=== PATIENT | female | born 1995 | race Caucasian/White ===

== ENCOUNTER → 2017-03-10 | Outpatient (CLI) | payer BC, OTHER ==
--- NOTE | 2017-03-10 14:38 | REP ---
MRI BRAIN WITHOUT AND WITH CONTRAST: HISTORY: Pituitary neoplasm. CONTRAST: ProHance 8 mL. There are no areas of abnormal signal intensity in the brain parenchyma. There is no intraparenchymal hemorrhage, infarct, mass or midline shift. There is no abnormal enhancement. The ventricular system is normal in appearance. There is no extracerebral collection. The patient is status post resection of a pituitary tumor. Residual pituitary tissue is present. There is homogeneous enhancement with contrast. The residual pituitary tissue measures 5.6 mm in height. The infundibulum is midline. The cavernous sinuses, optic chiasm and hypothalamus are normal in appearance. The sinuses are clear. IMPRESSION: There is no recurrent pituitary tumor. Signed by Luis Pillai MD 03/10/2017 02:56 P
== END ==
LOC: M RAD 10:53
PROVIDERS: ATTEND Neurological Surgery
DX: D35.2 Benign neoplasm of pituitary gland (principal)
CPT/HCPCS: 70553; A9576

== ENCOUNTER → 2018-03-11 | Outpatient (REF) | payer BC | LOC: M LAB REF 19:46 | DX: J02.9 Acute pharyngitis, unspecified (principal) | CPT/HCPCS: 87081 ==

== ENCOUNTER → 2018-04-13 | Outpatient (CLI) | payer BC ==
[~2018-04-13] MED LIST: PROHANCE 279.3MG/ML 5ML VIAL (A9576) As Ordered
== END ==
LOC: M RAD 11:25
DX: Z86.011 Personal history of benign neoplasm of the brain (principal); J32.0 Chronic maxillary sinusitis
CPT/HCPCS: A9576

== ENCOUNTER → 2020-07-16 | Outpatient (REF) | payer OTHER | LOC: M SFHCWAGY 12:49 | PROVIDERS: ATTEND Nurse Practitioner Women's Health | DX: Z12.4 Encounter for screening for malignant neoplasm of cervix (principal); Z77.9 Other contact with and (suspected) exposures hazardous to health ==

== ENCOUNTER → 2020-10-16 | Outpatient (CLI) | payer OTHER | LOC: M WUC 10:59 | PROVIDERS: ATTEND Family Medicine | DX: N91.2 Amenorrhea, unspecified (principal) ==

== ENCOUNTER → 2020-10-17 | Outpatient (CLI) | payer OTHER ==
--- NOTE | 2020-10-17 14:10 | REP ---
INDICATION: (+) PREG 12WKS CRAMPING BLEEDING W/ PAIN ? ECTOPIC. COMPARISON: None. TECHNIQUE: Transabdominal and endovaginal probe imaging were performed FINDINGS: 1, Para 0 LMP 07/22/2020 = 12 weeks 3 days, CORDELL(LMP) = 04/28/2021 Bladder was empty as the patient was not properly prepped for this ultrasound. Uterus is anteverted. It measures 7.5 x 3 x 4.9 cm. The central endometrial stripe has a thickness of 10 mm. Many image 0 cavity is a 3 x 2 x 3 mm anechoic focus representing small amount of fluid there is no decidual reaction evident at this time. If this findings the sac there is no evidence of a yolk sac or pole within it. No other fluid in the endometrial cavity or endocervical canal. The right ovary is 2.9 x 1.2 x 2.7 cm with Doppler tracing showing resistive index 0.35 and normal blood flow. The left ovary is 3 x 2.7 x 2 cm and also has normal Doppler tracing with resistive index 0.50. Within the left ovary is a 1.5 x 1.3 x 1 cm hypoechoic complex that may be hemorrhagic corpus luteum. There is a trace amount of free fluid in the cul-de-sac. Technologist notes indicate HCG = 389. IMPRESSION: 1. There is a 3 x 3 x 2 mm anechoic focus in the endometrial cavity that may be a small fluid collection stones not have a normal appearance of the gestational sac with decidual reaction absent. There is no yolk sac or pole within it. No other fluid in the endometrial cavity or endocervical canal. Uterus anteverted and not enlarged. 2. Both ovaries show normal size and normal Doppler and color flow. The 1.5 x 1.3 x 1 cm complex hypoechoic focus in the left ovary suggesting probable hemorrhagic corpus luteum. The beta hCG is 389. Trace free fluid. 3. I cannot confirm normal intrauterine at this time. The tiny fluid collection may reflect small trapped fluid in the endometrial cavity. There is no decidual reaction to define a normal gestational sac at this time. No yolk sac or pole evident. Follow-up with beta HCG and ultrasound if clinically indicated. <Electronically signed by Phong Mckinney > 10/17/20 [id number]
== END ==
LOC: M RAD 13:15
PROVIDERS: ATTEND Physician Assistant Medical
DX: Z32.01 Encounter for pregnancy test, result positive (principal); O26.851 Spotting complicating pregnancy, first trimester; Z3A.12 12 weeks gestation of pregnancy

== ENCOUNTER → 2020-10-18 | Outpatient (CLI) | payer OTHER | LOC: M WUC 15:34 | PROVIDERS: ATTEND Family Medicine | DX: N91.2 Amenorrhea, unspecified (principal) ==

== ENCOUNTER → 2020-11-07 | Outpatient (CLI) | payer OTHER ==
--- NOTE | 2020-11-07 13:07 | REP ---
INDICATION: PREG, VIABILITY-VAG BLEEDING, STAT LAB 1ST THEN US. COMPARISON: 10/07/2020 TECHNIQUE: Transabdominal FINDINGS: Within the uterus there is an anechoic structure with increased echoes surrounding it consistent with a decidual reaction. Within the gestational sac there is echogenic material consistent with a pole the mean crown-rump length measurement of which is consistent with a 6 week 4 day gestational age. Based on that the estimated date of delivery is 06/29/2021. A tiny anechoic structure was also seen in the gestational sac consistent with a yolk sac. Doppler interrogation of the heart shows a heart rate of 153 beats per minute. Seen adjacent to the developing chorion there is a small area of decreased echoes which measures 1.8 x 0.6 x 1.8 cm. IMPRESSION: Early OB ultrasound as described above. The area of decreased echoes seen adjacent to the developing chorion represents either a small subchorionic hemorrhage or an area of non fusion of the chorion during this early stage of . Follow-up is recommended if the patient is experiencing vaginal bleeding. <Electronically signed by Ezequiel Gurrola > 11/07/20 [id number]
== END ==
LOC: M RAD 12:18
PROVIDERS: ATTEND Family Medicine
DX: O03.9 Complete or unspecified spontaneous abortion without complication (principal); N93.9 Abnormal uterine and vaginal bleeding, unspecified

== ENCOUNTER → 2021-01-02 | Outpatient (CLI) | payer OTHER ==
[2021-01-02 20:11] LABS: BASO % 0.1 % (0.0-1.0); EOS # 0.1 10^3/uL (0.0-0.5); EOS % 0.6 % (0.0-3.0); HEMATOCRIT 38.4 % (36.0-47.0); HEMOGLOBIN 12.7 g/dl (12.0-15.5); LYMPH # 3.1 10^3/uL (1.5-5.0); LYMPH % 38.4 % (24.0-44.0); MEAN CORPUSCULAR HEMOGLOBIN 31.3 pg (27.0-33.0); MEAN CORPUSCULAR HGB CONC 33.1 g/dl (32.0-36.5); MEAN CORPUSCULAR VOLUME 94.6 fl (80.0-96.0); MONO # 0.5 10^3/uL (0.0-0.8); MONO % 5.9 % (2.0-8.0); NEUTROPHILS # 4.4 10^3/uL (1.5-8.5); NEUTROPHILS % 54.8 % (36.0-66.0); PLATELET COUNT, AUTOMATED 241 10^3/uL (150-450); RED BLOOD COUNT 4.06 10^6/uL (4.00-5.40); WHITE BLOOD COUNT 8.1 10^3/uL (4.0-10.0)
[2021-01-02 21:23] LABS: HEPATITIS C VIRUS ABY INDEX < 0.0 INDEX (<0.8); HIV 1&2 SCREEN CENTAUR NEGATIVE (NEGATIVE)
== END ==
LOC: M WUC 15:47
PROVIDERS: ATTEND Family Medicine
DX: Z36.89 Encounter for other specified antenatal screening (principal); Z3A.08 8 weeks gestation of pregnancy

== ENCOUNTER 2021-03-14 20:37 | Outpatient (CLI) | payer OTHER ==
[~2021-03-14] VITALS: Ht 160 cm; Wt 86.7 kg
[2021-03-14 20:44] VITALS: BP 126/58
[2021-03-14] MEDS ORDERED: PRENTAB9 PO (22:50)
--- NOTE | 2021-03-14 22:55 | IPNPDOC ---
Obstetrical Progress Note Date of Service Mar 14, 2021 Subjective 25-year-old G1, P0 at 25+2 weeks gestation. Presents with lower back pain and pelvic pressure all throughout today. She denies any vaginal bleeding loss of fluid. She is unsure if she is jaleel. She reports regular movement. 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 No abdominal or [employer] surgeries. O: Vitals are normal and stable she is afebrile General: Patient appears to be resting comfortably in the bed Abdomen soft nontender nondistended, uterine fundal height is consistent with gestational age, and uterine fundus is nontender No CVA tenderness SSE: Cervix is visually closed, no vaginal bleeding, no cervical lesions, no abnormal discharge or foul odor SVE: Closed thick high cervix Transvaginal ultrasound limited: Cervical length is 3.8 to 4.0 cm no funneling or dynamic changes noted, cephalic presentation noted. EFM: Category 1, normal baseline moderate variability reactive for gestational age [place]: No contraction pattern detected Urinalysis is negative for evidence of UTI A/P: 25-year-old G1, P0 at 25+2 weeks gestation. No evidence of labor advanced cervical dilation or cervical shortening. Reassuring maternal and status Routine second trimester precautions reviewed Advised Tylenol, weight support band and rest to help relieve her discomfort Elbert Quiroz DO FACOG Objective Vital Signs Date Time Temp Pulse Resp B/P (MAP) Pulse Ox O2 Delivery O2 Flow Rate FiO2 03/14/21 20:44 97.2 80 126/58 (80) AV QUIROZ DO Mar 14, 2021 22:55
== END 2021-03-14 22:58 | disposition home or self-care (01) ==
LOC: M LDO 20:37
PROVIDERS: ATTEND Obstetrics & Gynecology
DX: O26.892 Other specified pregnancy related conditions, second trimester (principal); Z3A.25 25 weeks gestation of pregnancy; M54.5 Low back pain; R10.2 Pelvic and perineal pain
CPT/HCPCS: 59025; 76815; 81001; G0378; G0463

== ENCOUNTER → 2021-06-17 | Outpatient (CLI) | payer OTHER ==
[~2021-06-17] MED LIST changes: +PRENTAB9 PO; -PROHANCE 279.3MG/ML 5ML VIAL (A9576) As Ordered
[2021-06-17 13:02] LABS: BASO % 0.4 % (0.0-1.0); EOS % 0.3 % (0.0-3.0); HEMATOCRIT 33.5 % (36.0-47.0); HEMOGLOBIN 10.8 g/dl (12.0-15.5); LYMPH # 1.8 10^3/uL (1.5-5.0); LYMPH % 22.2 % (24.0-44.0); MEAN CORPUSCULAR HEMOGLOBIN 29.1 pg (27.0-33.0); MEAN CORPUSCULAR HGB CONC 32.2 g/dl (32.0-36.5); MEAN CORPUSCULAR VOLUME 90.3 fl (80.0-96.0); MONO # 0.4 10^3/uL (0.0-0.8); MONO % 5.4 % (2.0-8.0); NEUTROPHILS # 5.7 10^3/uL (1.5-8.5); NEUTROPHILS % 71.2 % (36.0-66.0); PLATELET COUNT, AUTOMATED 227 10^3/uL (150-450); RED BLOOD COUNT 3.71 10^6/uL (4.00-5.40); WHITE BLOOD COUNT 7.9 10^3/uL (4.0-10.0)
[2021-06-17 13:39] LABS: ALBUMIN 2.4 GM/DL (3.2-5.2); ALT/SGPT 16 U/L (12-78); BILIRUBIN,TOTAL 0.2 MG/DL (0.2-1.0); BLOOD UREA NITROGEN 9 MG/DL (7-18); CALCIUM LEVEL 8.6 MG/DL (8.5-10.1); CARBON DIOXIDE LEVEL 23 MEQ/L (21-32); CHLORIDE LEVEL 107 MEQ/L (98-107); CREATININE FOR GFR 0.64 MG/DL (0.55-1.30); GLOMERULAR FILTRATION RATE > 60.0 (>60); GLUCOSE, FASTING 106 MG/DL (70-100); POTASSIUM SERUM 3.8 MEQ/L (3.5-5.1); SODIUM LEVEL 140 MEQ/L (136-145); TOTAL PROTEIN,RANDOM URINE 20.4 MG/DL (0.0-12.0); URIC ACID 4.8 MG/DL (2.6-6.0)
[2021-06-17 14:22] LABS: HIV 1&2 SCREEN CENTAUR NEGATIVE (NEGATIVE)
== END ==
LOC: M WUC 10:08
PROVIDERS: ATTEND Licensed Practical Nurse
DX: Z34.03 Encounter for supervision of normal first pregnancy, third trimester (principal); Z36.89 Encounter for other specified antenatal screening

== ENCOUNTER → 2022-08-29 | Outpatient (CLI) | payer OTHER ==
[2022-08-29 22:25] LABS: HEPATITIS B SURFACE ANTIGEN NEGATIVE (NEGATIVE)
[2022-08-29 22:38] LABS: HIV 1&2 SCREEN CENTAUR NEGATIVE (NEGATIVE)
[2022-08-29 22:46] LABS: HEPATITIS C VIRUS ABY INDEX < 0.0 INDEX (<0.8)
== END ==
LOC: M WUC 15:23
PROVIDERS: ATTEND Physician Assistant
DX: Z02.5 Encounter for examination for participation in sport (principal)

== ENCOUNTER → 2022-12-18 | Outpatient (CLI) | payer OTHER ==
[2022-12-18 20:05] LABS: CORTISOL BASELINE 10.3 UG/DL (4.3-22.4)
[2022-12-18 20:09] LABS: FOLLICLE STIMULATING HORMONE 2.4 mIU/ML; LUTEINIZING HORMONE 6.4 mIU/ML
[2022-12-18 20:10] LABS: ESTRADIOL 122.7 PG/ML; THYROID STIMULATING HORMONE 1.878 uIU/ML (0.55-4.78)
[2022-12-18 20:11] LABS: FREE T4 0.83 NG/DL (0.89-1.76); PROGESTERONE 10.12 NG/ML
[2022-12-24 17:07] LABS: SEX HORMONE BINDING GLOBULIN 30.4 nmol/L (24.6-122.0)
== END ==
LOC: M WUC 15:33
PROVIDERS: ATTEND Obstetrics & Gynecology
DX: E34.9 Endocrine disorder, unspecified (principal); F52.0 Hypoactive sexual desire disorder; R53.83 Other fatigue

== ENCOUNTER 2024-09-22 17:39 | Emergency (ER) | payer OTHER, SELFPAY ==
[~2024-09-22] VITALS: Ht 160 cm; Wt 76.2 kg
[2024-09-22 18:48] LABS: HEMATOCRIT 29.9 % (36.0-47.0); HEMOGLOBIN 9.9 g/dl (12.0-15.5); MEAN CORPUSCULAR HEMOGLOBIN 30.6 pg (27.0-33.0); MEAN CORPUSCULAR HGB CONC 33.1 g/dl (32.0-36.5); MEAN CORPUSCULAR VOLUME 92.3 fl (80.0-96.0); PLATELET COUNT, AUTOMATED 264 10^3/uL (150-450); RED BLOOD COUNT 3.24 10^6/uL (4.00-5.40); WHITE BLOOD COUNT 5.6 10^3/uL (4.0-10.0)
[2024-09-22] MEDS: OXYMETAZOLINE 0.05% NASAL SPRAY ONE (20:02)
[2024-09-22 20:10] VITALS: BP 101/60; TEMP 96.7; O2SAT 100
== END 2024-09-22 20:14 | disposition home or self-care (01) ==
LOC: M ED 17:39
DX: R04.0 Epistaxis (principal); D50.9 Iron deficiency anemia, unspecified; Z91.018 Allergy to other foods